=== PATIENT | female | born 1990 | race Caucasian/White ===

== ENCOUNTER 2016-08-15 03:14 | Emergency (ER) | payer BC ==
[~2016-08-15 03:14] MED LIST: BUSPAR15 M1 PO; LEXAPRO10 PO; SPRINTEC 2828 DAY PO
== END 2016-08-15 03:30 | disposition home or self-care (01) ==
LOC: ER 03:14
PROC: 2W3MX1Z Immobilization of Left Lower Extremity using Splint (ICD-10-PCS; principal; 2016-08-15)
DX: S86.912A Strain of unspecified muscle(s) and tendon(s) at lower leg level, left leg, initial encounter (principal); I10 Essential (primary) hypertension; Z90.49 Acquired absence of other specified parts of digestive tract; Z88.2 Allergy status to sulfonamides; Z79.899 Other long term (current) drug therapy; X58.XXXA Exposure to other specified factors, initial encounter
CPT/HCPCS: 73560-LT; 99283